=== PATIENT | female | born 1985 | race Caucasian/White ===

== ENCOUNTER 2023-03-13 08:18 | Observation (INO) ==
--- NOTE | 2023-02-20 10:08 | PAT Medication Instructions ---
Medication Instructions Date of Service February 20, 2023 Home Medications Medical Marijuana Card 1 dose UD PRN acetaminophen 500 mg capsule 1,000 - 1,500 mg PO UD PRN dextroamphetamine-amphetamine 10 mg tablet (Adderall) 10 mg PO TID divalproex 500 mg tablet,delayed release (Depakote) 1,000 mg PO BID ondansetron HCl 8 mg tablet 8 mg PO UD PRN Continue as directed ondansetron HCl 8 mg tablet 8 mg PO UD PRN(if needed) acetaminophen 500 mg capsule 1,000 - 1,500 mg PO UD PRN(if needed) DO NOT take the morning of surgery Medical Marijuana Card 1 dose UD PRN dextroamphetamine-amphetamine 10 mg tablet (Adderall) 10 mg PO TID Take morning of surgery With a small sip of water, OTHERWISE NOTHING TO EAT OR DRINK AFTER MIDNIGHT: divalproex 500 mg tablet,delayed release (Depakote) 1,000 mg PO BID Take evening before surgery dextroamphetamine-amphetamine 10 mg tablet (Adderall) 10 mg PO TID divalproex 500 mg tablet,delayed release (Depakote) 1,000 mg PO BID Other Notes If you have any questions please call us at [phone] or [phone] or [phone] or [phone]
--- NOTE | 2023-02-27 13:10 | Anesthesiology Consultation ---
Date of Service February 27, 2023 Assessment & Plan (1) Encounter for pre-operative examination: Chart Review Chart Review: Acceptable Risk for Surgery (pending surgeon ordered PCP clearance 03/06/23) and Patient seen in Pre Admission Testing - Awaiting PCP clearance 03/06/23 Per PAT appt on 02/27/23, patient denies any recent travel. No recent Covid exposures, Covid related symptoms, or recent Covid positive tests. Will leave to surgeon's discretion if preop Covid testing needed. Educated on importance of using Covid precautions one week prior to surgery Teaching & Discussion Pre-Anesthesia Teaching/Discussion Notes: Instructed NPO after midnight before surgery,except medications with 15 cc of water. Medication instructions provided according to the PAT guidelines. History Surgery Operation Date: 03/13/23 13:25 Proposed Procedures p Coflex Hardware Removal, L2-L3 Decompression and Fusion, Spinal Cord Monitoring - Prasanth Richards, Height/Weight Height: 5 ft 8 in Weight: 79.1 kg Allergies Allergy/AdvReac Type Severity Reaction Status Date / Time peanut Allergy Severe THROAT Verified 02/19/23 13:32 SWELLS; ITCHY; HIVES vancomycin Allergy Severe throat Verified 02/19/23 13:32 swells;itchy and hives adhesive Allergy Unknown red;itchy Verified 02/19/23 13:32 Medications Home Medications Medication Instructions Recorded Confirmed Last Taken Medical Marijuana Card 1 dose UD PRN Pain 02/19/23 02/19/23 Unknown acetaminophen 500 mg capsule 1,000 - 1,500 mg PO UD PRN Pain 02/19/23 02/19/23 Unknown dextroamphetamine-amphetamine 10 10 mg PO TID 02/19/23 02/19/23 Unknown mg tablet (Adderall) divalproex 500 mg tablet,delayed 1,000 mg PO BID 02/19/23 02/19/23 Unknown release (Depakote) ondansetron HCl 8 mg tablet 8 mg PO UD PRN Nausea 02/19/23 02/19/23 Unknown Past Medical History Medical History Ankylosing spondylitis Bipolar disorder Excessive daytime sleepiness Hx of sleep study >10 years ago- unsure of results No snoring or witnessed apnea Gastroparesis Exercise / Class Metabolic Activity II 4-5 Yardwork/Stairs/Walk up hill (one flight of stairs- no chest pain or SOB ) Past Surgical History Surgical History History of appendectomy History of bilateral breast reduction surgery History of cholecystectomy History of colonoscopy History of endoscopy History of foot surgery right/hardware History of hysterectomy cervix and uterus removed/ pt reports believes ovaries and tubes remain. History of lumbar surgery coflex L2-L3 Past Anesthesia History No Hx of Anesthesia Complications (occ slow to wake- no reintubation or ICU stay ) and No Family Hx of Anesthesia Complications History of PONV No Hx of PONV and No Hx of Motion Sickness Social History Smoking Status: Current every day smoker tobacco type: e-cigarettes Smoking cigarettes per day: daily vape / advised npo Do You Dip or Chew Tobacco: No Smoking End Date: hx cigarettes / quit 2 yr ago Hx Alcohol Use: No Hx Substance Use: No substance use type: other Substance Use Type Other:: medical marijuana card - instructed to bring card. Last Used Substance Other:: daily use for pain Review of Systems Patient denies chest pain, shortness of breath, dyspnea on exertion, reflux, cough, wheezing, palpitations. No hx of seizures, stroke, [place], apnea/snoring. No hx of blood clots or blood transfusions Physical Exam Vital Signs VITALS BP 148/82 P 95 TEMP 98.6 SP02 100% RESP 16 Constitutional no acute distress ENMT Mouth: no TMJ clicking Thyromental Distance: > or= 3.5 Finger Breadths (3.5) Mallampati Class: II Mouth / Teeth: 1. Cracked to front tooth Missing molars Cracked molar on top left and right No significant loose teeth Neck neck extension not limited Respiratory normal respiratory effort; no respiratory distress Auscultation: lungs clear to auscultation bilaterally; no wheezes Cardiovascular Rate/Rhythm: regular rate and regular rhythm Heart Sounds: no murmur Vessels: no carotid bruit Musculoskeletal Spine: + pain with cervical ROM (mild) Extremities: extremities normal to inspection Psychiatric Orientation: alert Lab Results Anesthesia Preop Results Results Anesthesia Widget: WBC 7.62 K/ul (4.8-10.8) 02/27/23 Hgb 14.1 g/dl (12.0-16.0) 02/27/23 Hct 40.4 % (37.0-47.0) 02/27/23 Plt 273 K/uL (130-400) 02/27/23 Na 138 mmol/L (136-145) 02/27/23 K 3.9 mmol/L (3.5-5.1) 02/27/23 Cl 105 mmol/L (98-107) 02/27/23 CO2 27 mmol/L (21-32) 02/27/23 BUN 8 mg/dl (6-23) 02/27/23 Creat 0.76 mg/dl (0.6-1.2) 02/27/23 Glucose Level 102 mg/dl (70-99(Fasting)) H 02/27/23 PT 11.2 Seconds (9.0-12.0) 02/27/23 PTT 28.6 Seconds (21.0-31.0) 02/27/23 INR 1.0 (0.9-1.1) 02/27/23 Urine Color Yellow 02/27/23 Urine Appearance Clear (Clear) 02/27/23 Urine pH 6.0 (4.5-7.5) 02/27/23 Urine Specific [place] 1.014 (1.000-1.030) 02/27/23 Urine Protein Negative (Negative) 02/27/23 Urine Glucose (UA) Negative (Negative) 02/27/23 Urine Ketones Trace (Negative) H 02/27/23 Urine Blood Negative (Negative) 02/27/23 Urine Nitrite Negative (Negative) 02/27/23 Urine Bilirubin Negative (Negative) 02/27/23 Urine Urobilinogen Negative (Negative) 02/27/23 Urine Leukocyte Esterase Negative (Negative) 02/27/23 Blood Type A Positive 02/27/23 Antibody Screen NEGATIVE 02/27/23 Testing Electrocardiogram Date: 02/27/23 Findings: + NSR @ (93bpm) Right atrial enlargement Rightward axis Chest X-Ray Date: 02/27/23 Findings: + NAD
[~2023-03-13 08:18] MED LIST: ACETAMINOPHEN 500 MG TAB PO SCH; CeleBREX 200 MG CAP PO SCH; GABAPENTIN 900 MG DOSE PO SCH; LACTATED RINGER'S 1,000 ML IV SCH; LR 60ML/HR IV SCH; ceFAZolin 2000MG 2,000 MG/15 ML SYR IV SCH
[2023-03-13] MEDS ORDERED: fentaNYL citrate PF 100 MCG/2 ML VIAL ONE (08:46)
[2023-03-13] MEDS ORDERED: MIDAZOLAM HCL 1 MG/ML 2ML VIAL ONE (08:46)
[2023-03-13] MEDS ORDERED: LIDOCAINE 2% 2 ML VIAL/AMP(20MG/ML) INFIL ONE (08:46)
[2023-03-13] MEDS ORDERED: ROCURONIUM BROMIDE 10 MG/ML 5 ML VIAL IV ONE (08:46)
[2023-03-13] MEDS ORDERED: PROPOFOL IV EMULSION 10 MG/ML 20 ML VIAL IV ONE (08:46)
[2023-03-13] MEDS ORDERED: ePHEDrine sulfate 50 MG/ML AMP IV PRN (09:36)
[2023-03-13] MEDS ORDERED: ATROPINE SULFATE 0.1 MG/ML 10ML SYR IV PRN (09:36)
--- NOTE | 2023-03-13 09:54 | History & Physical Bridge Note ---
Date of Service March 13, 2023 History & Physical Bridge Note I have examined the patient, reviewed the History & Physical and in the interval since the performance of the History & Physical I have noted the following changes of clinical significance: no changes noted
--- NOTE | 2023-03-13 09:58 | History & Physical Report ---
Date of Service March 13, 2023 Assessment & Plan (1) Lumbar disc herniation with radiculopathy: Plan: Coflex hardware removal, L2-L3 decompression fusion History of Present Illness Chief Complaint: Back and leg pain Primary Care Provider: Chely Hamm MD This is a 37-year-old female presents with chronic persistent back and leg pain and failing since course of nonoperative care she is here for surgical invention. Allergies Allergy/AdvReac Type Severity Reaction Status Date / Time peanut Allergy Severe THROAT Verified 03/13/23 08:43 SWELLS; ITCHY; HIVES vancomycin Allergy Severe throat Verified 03/13/23 08:43 swells;itchy and hives adhesive Allergy Unknown red;itchy Verified 03/13/23 08:43 Home Medications Medication Instructions Recorded Confirmed Type Medical Marijuana Card 1 dose UD PRN Pain 02/19/23 03/13/23 History acetaminophen 500 mg capsule 1,000 - 1,500 mg PO UD PRN Pain 02/19/23 03/13/23 History dextroamphetamine-amphetamine 10 10 mg PO TID 02/19/23 03/13/23 History mg tablet (Adderall) divalproex 500 mg tablet,delayed 1,000 mg PO BID 02/19/23 03/13/23 History release (Depakote) ondansetron HCl 8 mg tablet 8 mg PO UD PRN Nausea 02/19/23 03/13/23 History Past Med/Surg History Medical History (Updated 03/13/23 @ 09:57 by Prasanth Richards DO) Ankylosing spondylitis Bipolar disorder Excessive daytime sleepiness Hx of sleep study >10 years ago- unsure of results No snoring or witnessed apnea Gastroparesis Rheumatoid arthritis Per PCP records Surgical History History of appendectomy History of bilateral breast reduction surgery History of cholecystectomy History of colonoscopy History of endoscopy History of foot surgery right/hardware History of hysterectomy cervix and uterus removed/ pt reports believes ovaries and tubes remain. History of lumbar surgery coflex L2-L3 Social History Smoking Status: Current every day smoker Cigarettes Per Day: daily vape / advised npo; Smoking End Date: hx cigarettes / quit 2 yr ago; Do You Dip or Chew Tobacco: No; Hx Alcohol Use: No Hx Substance Use: No Preferred Language: Portuguese Communication Ability: Effective Marketing Effectiveness Manager Required: No Beliefs That Will Affect Care: None Current Living Situation: Family Current Living Situation Comment: deannather is with me 50% of the time , she is 12. Other Information That Helps Us Care for You: No Feels Safe at Home: Yes Assistive Devices: Glasses and Other Assistive Devices Comment: multiple loose/cracked teeth/dental pippa [place] before sx Physical Exam Physical Exam: Patient is alert and oriented Heart regular rhythm Lungs clear Results & Data Results & Data Vital Signs (Past 12 Hours) Vital Signs Temp Pulse Resp BP Pulse Ox O2 Del Method 03/13/23 08:45 36.8 C 90 18 127/80 99 Room Air
[2023-03-13] MEDS ORDERED: BUPIVACAINE/EPINEPHRINE 0.25% 1:200,000 30 ML VIAL ONE (10:10)
[2023-03-13] MEDS ORDERED: ceFAZolin 330 MG/ML 1 GM VIAL ONE (10:10)
[2023-03-13] MEDS ORDERED: FLOSEAL HEMOSTATIC MATRIX 10ML TOP ONE (11:12)
--- NOTE | 2023-03-13 11:44 | Operative Report ---
Post Operative Report Pre & Post Diagnosis Operation Date: 03/13/23 09:55 Pre-Op Diagnosis: Lumbar disc herniation with radiculopathy Post-Op Diagnosis: Lumbar disc herniation with radiculopathy I identified the patient and participated in the time-out.: Yes Procedure Operation Date: 03/13/23 09:55 Actual Procedures #1 removal of posterior implant L2-L3. #2 revision decompression L2-L3 with medial facetectomies and foraminotomies L2-L3. #3 posterior spinal fusion L2- L3. #4 posterior instrumentation L2-3 P #5 interbody fusion L2-3 #6 placement spiral 13 x 26 mm at L2-3. #7 patient with locally harvested morselized autograft and posterior gutters. #8 placement of I factor in the interbody space and infuse collagen sponge, mass graft in the posterior lateral gutters. Surgeon Prasanth Richards, Maintenance Supervisor Mechanical Yadi Yancey Estimated Blood Loss 100 Findings Consistent with Post-Op Diagnosis Specimens None Indications This is a 37-year-old female known to me that presents above this diagnosis after failed course of nonoperative care she is here for surgical invention. Description of Procedure Patient was met with identified informed sent obtained. Patient was then taken to the operative suite underwent and patient placed in a prone position on the Alpine table top Charbel frame. All bony promises well-padded as inspected to ensure no external process. On the bed this point the lumbar spine was prepped and draped in a sterile fashion. Sharp dissection the assistance of Bovie cards from the joint exposing the remaining interlaminar space and Coflex implant at L2 l 3 including the transverse processes. I then remove the Coflex implant and revised the decompression performed a complete laminectomy of L2 including bilateral manifest and present foraminal stressing all spinal stenosis. Pedicle screws were then placed in L2-L3 bilaterally with assistance of fluoroscopy and the properly sized tere placed. Bilateral transforaminal approach on the left complete discectomy of L2-L3 was performed endplates corrected to subcortical mean bone and a 13 x 26 mm prior cage with I factor tapped in position. Both sides approximately compressed locked in final position bilaterally. The transverse processes of L2-L3 bur to subcortical bone. Infuse collagen sponge for mass graft locally harvested morselized Was placed in posterior gutters. 15 round DIEGO drain inserted. The incision was then closed with 1 Vicryl and fascia 2-0 Vicryl subcutaneously and 4 Monocryl for final closure. Steri-Strips sterile dressings were placed. Patient will continue to PACU stable condition. Please note spinal cord monitoring was utilized at the procedure no changes noted. Lastly Yadi Yancey is present at the entire surgery and outpatient positioning complex portions of the surgery and possible closure. I attest to the content of the Intraoperative Record and any orders documented therein. Any exceptions are noted below.
[2023-03-13] MEDS: HYDROmorphone INJ 2 MG/ML SYR/VIAL IV PRN ×4 (12:05→14:20)
--- NOTE | 2023-03-13 12:40 | Fluoroscopy Report ---
[place] lumbar spine 2-3V CLINICAL HISTORY: COFLEX HARDWARE REMOVAL, L2-L3 D/F COMPARISON STUDY: None FLUOROSCOPY TIME: 21.1 seconds FLUOROSCOPY IMAGES: 2 EXPOSURE DOSE: 13.25 mGy FINDINGS: Posterior and right-sided tere and screw fusion and discectomy is noted within the lumbar sp ine which appears to be the L2-L3 interspace. Indeterminate ill-defined radiodense structure projects posterior to the disc space. Surgical clips of the upper abdomen at the level of L1. No definitive i mages were submitted following completion of the surgery. IMPRESSION: Fluoroscopic assistance as above. ACT 112: Negative or not required by law. Electronically signed by: Berlin Mckenna M.D. 03/13/2023 12:39 PM
--- NOTE | 2023-03-13 12:51 | Anesthesiology Progress Note ---
Date of Service March 13, 2023 Anesthesia Post Procedure Vital Signs Vital Signs: Temp Pulse Resp BP BP Pulse Ox O2 Del Method 03/13/23 12:50 60 10 L 123/83 100 Nasal Cannula 03/13/23 12:40 54 L 10 L 134/78 100 Nasal Cannula 03/13/23 12:30 98 H 12 140/83 100 Nasal Cannula 03/13/23 12:20 67 12 130/77 100 Nasal Cannula 03/13/23 12:10 67 12 108/77 100 Nasal Cannula 03/13/23 12:00 86 18 121/72 100 Nasal Cannula 03/13/23 11:54 36.0 C L 96 H 20 117/74 100 Nasal Cannula 03/13/23 08:45 36.8 C 90 18 127/80 99 Room Air O2 Flow Rate 03/13/23 12:50 2 03/13/23 12:40 2 03/13/23 12:30 2 03/13/23 12:20 2 03/13/23 12:10 2 03/13/23 12:00 2 03/13/23 11:54 2 03/13/23 08:45 Pain Intensity Back: Pain Intensity: 7 Transfer of Care Handoff Completed per policy Notes Mental Status: alert / awake / arousable Patient Amnestic to Procedure: Yes Nausea / Vomiting: adequately controlled Pain: adequately controlled Airway Patency, RR, SpO2: stable & adequate BP & HR: stable & adequate Hydration State: stable & adequate Anesthetic Complications: no major complications apparent and Pt Satisfied with anesthetic care
[2023-03-13] MEDS ORDERED: LORazepam 0.5 MG TAB PO PRN (14:55)
[2023-03-13] MEDS ORDERED: ACETAMINOPHEN 1,000 MG/100 ML VIAL IV PRN (14:55)
[2023-03-13] MEDS ORDERED: bisacodyL 10 MG SUPP PR PRN (14:55)
[2023-03-13] MEDS ORDERED: hydrOXYzine HCl 25 MG TAB PO PRN (14:55)
[2023-03-13] MEDS ORDERED: MAGNESIUM HYDROXIDE SUSP 30 ML UDC PO PRN (14:55)
[2023-03-13] MEDS ORDERED: ALUMINUM/MAGNESIUM SUSP 30 ML UDC PO PRN (14:55)
[2023-03-13] MEDS ORDERED: diphenhydrAMINE Capsule 25 MG CAP PO PRN (14:55)
[2023-03-13] MEDS ORDERED: PROMETHAZINE HCL 12.5 MG in SODIUM CHLORIDE 0.9% 50 ML IV PRN (14:55)
[2023-03-13] MEDS ORDERED: HYDROmorphone INJ 1 MG/ML SYRINGE IV PRN (14:55)
[2023-03-13] MEDS ORDERED: LORazepam 2 MG/1 ML VIAL IV PRN (14:55)
[2023-03-13] MEDS ORDERED: METOCLOPRAMIDE HCL INJ 5 MG/ML 2 ML VIAL IV PRN (14:55)
[2023-03-13] MEDS ORDERED: ACETAMINOPHEN 500 MG TAB PO PRN (14:55)
[2023-03-13] MEDS ORDERED: DO NOT ADMINISTER PNEUMOCOCCAL VACCINE PRN (14:55)
[2023-03-13] MEDS ORDERED: DO NOT ADMINISTER FLU VACCINE PRN (14:55)
[2023-03-13] MEDS ORDERED: FAMOTIDINE 20 MG TAB PO PRN (14:55)
[2023-03-13] MEDS ORDERED: HYDROmorphone INJ 0.5 MG/0.5 ML SYR IV PRN (14:55)
[2023-03-13] MEDS ORDERED: traMADol HCL 50 MG TABLET PO PRN (14:55)
[2023-03-13] MEDS ORDERED: ONDANSETRON 4 MG OD TAB PO PRN (14:55)
[2023-03-13] MEDS ORDERED: SOD PHOSPHATE/SOD BIPHOSPHATE ENEMA 132 ML BTL PR PRN (14:55)
[2023-03-13] MEDS ORDERED: NALOXONE HCL 0.4 MG/1 ML VIAL/CARP IV PRN (14:55)
[2023-03-13] MEDS ORDERED: ONDANSETRON INJ 2 MG/ML 2 ML VIAL IV PRN (14:55)
[2023-03-13] MEDS: oxyCODONE HCL IR 5 MG TAB (IMMEDIATE RELEASE) PO PRN ×2 (15:06→19:27)
[2023-03-13] MEDS: LACTATED RINGER'S 1,000 ML IV SCH ×3 (16:01→22:20)
[2023-03-13] MEDS: AMPHETAMINE ASP/SULF/DEXTRAMPH 10 MG TAB PO SCH (16:02)
[2023-03-13] MEDS: ceFAZolin 2000MG 2,000 MG/15 ML SYR IV SCH (17:56)
[2023-03-13] MEDS: DOCUSATE SODIUM/SENNA 50/8.6MG TAB PO SCH (20:27)
[2023-03-13] MEDS: DIVALPROEX DELAY RELEASE 500 MG TAB PO SCH (20:27)
[2023-03-14] MEDS: ceFAZolin 2000MG 2,000 MG/15 ML SYR IV SCH (01:04)
[2023-03-14] MEDS: oxyCODONE HCL IR 5 MG TAB (IMMEDIATE RELEASE) PO PRN ×5 (01:09→21:14)
[2023-03-14] MEDS: AMPHETAMINE ASP/SULF/DEXTRAMPH 10 MG TAB PO SCH ×3 (04:57→15:48)
[2023-03-14] MEDS: POLYETHYLENE (MIRALAX) 17 GM PACK PO SCH ×4 (04:57→23:02)
[2023-03-14 08:04] LABS: Basophils # (auto) 0.03 K/uL (0.00-0.20); Basophils % (auto) 0.3 %; Eosinophils # (auto) 0.02 K/uL (0.00-0.50); Eosinophils % (auto) 0.2 %; Hematocrit (blood only) 33.3 % (37.0-47.0); Hemoglobin 11.3 g/dl (12.0-16.0); Immature Granulocytes # (auto) 0.04 K/uL (0.01-0.20); Immature Granulocytes % (auto) 0.3 %; Lymphocytes # (auto) 2.44 K/uL (1.20-3.40); Mean Corpuscular Hemoglobin 30.9 pg (25.0-34.0); Mean Corpuscular Hgb Conc 33.9 g/dL (32.0-36.0); Mean Platelet Volume 9.9 fL (9.4-12.4); Monocytes # (auto) 0.81 K/uL (0.11-0.59); Neutrophils # (auto) 8.29 K/uL (1.40-6.50); Neutrophils % (auto) 71.2 %; Platelet Count 302 K/uL (130-400); RDW Coefficient of Variation 12.4 % (11.5-14.5); RDW Standard Deviation 41.1 fL (36.4-46.3); Red Blood Count 3.66 M/uL (4.20-5.40); White Blood Count 11.63 K/ul (4.8-10.8)
[2023-03-14 08:28] LABS: BUN Creatinine Ratio 13.2 (10-20); Calcium 8.9 mg/dl (8.6-10.3); Creatinine Clr Calc Pharmacy 113.8 ml/min; Est GFR (African American) 117.8 ml/min; Est GFR (Non-African American) 101.6 ml/min; Potassium 4.3 mmol/L (3.5-5.1)
[2023-03-14] MEDS: dexAMETHasone 6 MG in SYRINGE 0 ML IV SCH (08:43)
[2023-03-14] MEDS: DIVALPROEX DELAY RELEASE 500 MG TAB PO SCH ×2 (08:43→21:13)
--- NOTE | 2023-03-14 11:46 | Orthopedic Progress Note ---
Date of Service March 14, 2023 Assessment & Plan (1) Lumbar disc herniation with radiculopathy: Plan: At this time continue physical therapy monitor DIEGO output hopefully discharge home this weekend. Admission and Anticipated Discharge Date Admission Date: March 13, 2023 Subjective Back pain controlled leg pain improved Physical Exam Physical Exam: Patient is in the chair at the bedside. Is constricted testing. Appears comfortable. Results & Data Vital Signs (Past 12 Hours) Vital Signs Temp Pulse Resp BP BP Pulse Ox O2 Del Method 03/14/23 11:12 36.9 C 82 16 125/86 98 Room Air 03/14/23 07:01 36.7 C 62 18 115/75 95 Room Air 03/14/23 02:47 36.6 C 70 16 92/60 L 98 Room Air
[2023-03-14] MEDS: DOCUSATE SODIUM/SENNA 50/8.6MG TAB PO SCH (21:13)
[2023-03-15] MEDS: oxyCODONE HCL IR 5 MG TAB (IMMEDIATE RELEASE) PO PRN ×2 (02:42→08:09)
[2023-03-15] MEDS: POLYETHYLENE (MIRALAX) 17 GM PACK PO SCH ×2 (04:58→11:13)
[2023-03-15] MEDS: AMPHETAMINE ASP/SULF/DEXTRAMPH 10 MG TAB PO SCH ×2 (04:58→11:07)
[2023-03-15] MEDS: DIVALPROEX DELAY RELEASE 500 MG TAB PO SCH (08:09)
[2023-03-15] MEDS: dexAMETHasone 6 MG in SYRINGE 0 ML IV SCH (08:20)
--- NOTE | 2023-03-15 10:56 | Discharge Summary ---
Date of Service March 15, 2023 Admission HPI Per Admitting Provider This is a 37-year-old female presents with chronic persistent back and leg pain and failing since course of nonoperative care she is here for surgical invention. Principal Diagnosis Recurrent discrimination with radiculopathy Discharge Data Allergies Allergy/AdvReac Type Severity Reaction Status Date / Time peanut Allergy Severe THROAT Verified 03/13/23 08:43 SWELLS; ITCHY; HIVES vancomycin Allergy Severe throat Verified 03/13/23 08:43 swells;itchy and hives adhesive Allergy Unknown red;itchy Verified 03/13/23 08:43 Procedures Performed Operation Date: 03/13/23 09:55 Actual Procedures p Coflex Hardware Removal, L2-L3 Decompression and Fusion, Spinal Cord Monitoring - Prasnath Richards DO Ordered Studies 03/13/23 [place] lumbar spine 2-3V Routine Hospital Course (1) Lumbar disc herniation with radiculopathy: Patient with limited impression patient tolerated this well was taken to orthopedic floor postoperatively postop day 1 she was up and ambulating progressed postop day #2. Pain well controlled. Excellent strength testing. DIEGO drain decreasing appropriately. Subsequent discharge home. Discharge orders and instructions from the chart for further review. Total Time Total Time Spent Total Time Spent (In Minutes): 20 minutes Discharge Plan Discharge Items Patient Disposition: Home - Self-Care Reason For Visit: Radiculopathy, Lumbar Region Discharge Diagnosis: Lumbar radiculopathy Activity: As commented below Non-emergency contact: Primary Care Provider Call non-emergency contact if: you have any medication questions Follow-up/Referrals: Chely Hamm MD [Primary Care Provider] - Diet: Regular Addtl Attending Provider Instructions: ACTIVITY RECOMMENDATIONS: SELF CARE INSTRUCTIONS AFTER THORACIC/LUMBAR FUSIONS 1. You may walk to your tolerance. It is good exercise for your legs and back. Expect some back and intermittent leg aches and pains. 2. You may perform "counter-top" level activities (make a sandwich, jaswinder with a project, etc.). 3. No bending or lifting of more than 10 pounds or back twisting of any nature (roll like a log when turning in bed). 4. You may ride in a car for 20-30 minutes at a time. No driving until after your first visit with your doctor. 5. Frequent changes of position and restricting sitting to 30 minutes at a time will help limit the amount of back spasms and stiffness you may experience. 6. You may discontinue the use of ambulatory aids (cane, crutches, etc.) once your strength and confidence allow. 7. You may industrial engineering the shower and let water strike your incision when you arrive home at least once daily. Do not take a tub bath, sit in a hot tub or go into a swimming pool until after your first recheck in the office. SPECIAL CARE INSTRUCTIONS: VERY IMPORTANT TO READ AND REVIEW A. Your surgical incision has been closed with a cosmetic suture under the skin that will dissolve in about 6 weeks. In 14 days, you can use a pair of clean scissors and cut the suture that is left outside of the skin at the ends of your incision. 1. The small skin tapes can be removed 7 days after surgery if they have not fallen off by that point. 2. You may keep the wound open to air as much as possible to promote healing after post-op day number 5 unless told otherwise by your doctor. 3. If you think the wound looks like it is becoming infected (redness or worsening drainage) and/or you are experiencing fever, chill or worsening back pain and muscle spasms, contact the office so that we may evaluate you as soon as possible. B. Complications are uncommon, but please contact us if you have any signs or symptoms of: 1. wound infection (fever higher than 102.5 degrees F, redness, separation of wound, drainage, or increasing pain from the incision) 2. blood clots in legs (pain, swelling, redness and warmth in legs) 3. urinary tract infection (fever higher than 102.5 degrees F, burning upon urination or increased frequency of urination) 4. nerve problems (inability to walk on your toes or heels, numbness, loss of bowel or bladder control) 5. any other symptoms that concern you C. Please call the office at if you have any concerns or questions about your operation or recovery. D. No smoking! Smoking drastically decreases the chance of a solid fusion. E. Do not take any anti-inflammatory medications (Indocin, Advil, Motrin, Aspirin, Naprosyn, etc.) as these may inhibit the chance of a solid fusion. Tylenol is okay to take for pain. MANAGING PAIN AFTER SPINAL SURGERY 1. Narcotic medication is intended for short-term use and will be provided for surgical pain. Surgical pain usually lasts for a period of 4-6 weeks. Narcotic medication includes Percocet, Vicodin, Darvocet, Tylenol #3 or Lortab. 2. Longer-term pain is more appropriately treated with non-narcotic medication such as Tylenol ES. 3. Muscle spasm is not appropriately treated with narcotics. Muscle relaxers such as Soma, Flexeril or Skelaxin can be used along with Tylenol ES. 4. Remember that we all live with some "aches and pains". This is not unusual or uncommon after an injury or as we get older. a. Back pain is expected and may include muscle spasms for 4 to 6 weeks after surgery. The pain should gradually improve. If the pain worsens for no apparent reason, please contact the office. b. Intermittent leg pain may also be experienced and should not be concerned about unless it worsens for no apparent reason. If so, please contact the office. 5. We will provide appropriate medication within the normal guidelines of their prescribed use. We will also be very cautious and aware of potential abuse and extended duration of patients' medication needs. a. Pain medications are for your comfort and to assist with sleep and rest so that the tissue can heal. They are not provided in order to return to normal activity and should not be used through the day. To do so or worsening pain at night can result from ongoing tissue damage and development of tolerance to the prescribed medicine. 6. Please allow 2-3 days to process refills. Prescriptions will not be mailed but must be picked up at the office. FOLLOW UP VISIT: Keep your scheduled follow-up appointment. Any questions, please call the office at . Pending Studies at Discharge: No Stand-Alone Forms: My [employer], Smoking Cessation Medications and DC Order Prescriptions: New tramadol 50 mg tablet 50 mg PO Q6H PRN (Reason: pain, moderate) Qty: 30 0RF oxycodone 5 mg tablet 5 mg PO Q6H PRN (Reason: pain) Qty: 30 0RF Continued ondansetron HCl 8 mg Tablet 8 mg PO UD PRN (Reason: Nausea) dextroamphetamine-amphetamine [Adderall] 10 mg Tablet 10 mg PO TID Rx Instructions: administer doses at least 4-6 hours apart divalproex [Depakote] 500 mg Tablet,Delayed Release (Dr/Ec) 1,000 mg PO BID acetaminophen 500 mg Capsule 1,000 - 1,500 mg PO UD PRN (Reason: Pain) Medical Marijuana Card 1 dose UD PRN (Reason: Pain) Discharge Orders: Discharge Order (Routine); Ordered 03/15/23 Ordered By: Prasanth Richards Admission Data Admit Date/Time: 03/13/23 11:48 Attending Provider: Prasanth Richards Admit Provider: Prasanth Richards Primary Care Provider: Chely Hamm
== END 2023-03-15 12:46 | disposition home or self-care (01) | DRG 455 ==
LOC: ASU 08:18 → INTOOBSV 11:48 → 3E 11:48